=== PATIENT | male | born 1965 | race African-American/Black ===

== ENCOUNTER 2020-04-20 10:16 | Inpatient (IN) | payer OTHER ==
[2020-04-20 11:13] VITALS: BMI 41.9
[2020-04-20] MEDS ORDERED: ONDANSETRON *ODT* 4 MG TABLET SL PRN (12:19)
[2020-04-20] MEDS ORDERED: MAGNESIUM CITRATE 300 ML BOTTLE PO PRN (12:19)
[2020-04-20] MEDS ORDERED: MAGNESIUM HYDROX 2400MG/30ML ORAL SUSPENSION 30 ML CUP PO PRN (12:19)
[2020-04-20] MEDS ORDERED: MENTHOL/PHENOL 1 EACH UD MM PRN (12:19)
[2020-04-20] MEDS ORDERED: MAG HYDROX/AL HYDROX/SIMETH 30 ML UNIT-DOSE CUP PO PRN (12:19)
[2020-04-20] MEDS ORDERED: BISMUTH SUBSALICYLATE 524 MG/30 ML UD PO PRN (12:19)
[2020-04-20] MEDS ORDERED: ACETAMINOPHEN 325 MG TABLET (FP) PO PRN ×2 (12:19)
[2020-04-20] MEDS: IBUPROFEN 400 MG TABLET (FP) PO PRN (13:14)
[2020-04-20] MEDS: chlordiazePOXIDE HCL 25 MG CAPSULE PO PRN (13:14)
[2020-04-20] MEDS: METHOCARBAMOL 500 MG TABLET PO PRN (13:14)
[2020-04-20] MEDS: hydrOXYzine PAMOATE 25 MG CAPSULE (FP) PO SCH ×3 (13:17→22:46)
[2020-04-20] MEDS: chlordiazePOXIDE HCL 25 MG CAPSULE PO SCH ×2 (17:41→22:46)
[2020-04-20] MEDS: DOCUSATE SODIUM 100 MG CAPSULE (FP) PO PRN (17:45)
[2020-04-20] MEDS ORDERED: MASKS NR ONE (22:45)
[2020-04-20] MEDS: MELATONIN 5 MG TABLETS PO SCH (22:46)
[2020-04-20] MEDS: ARIPiprazole 10 MG TABLET PO SCH (22:46)
[2020-04-20] MEDS: THIAMINE HCL 100 MG TABLET (FP) PO SCH (22:46)
[2020-04-21] MEDS: hydrOXYzine PAMOATE 25 MG CAPSULE (FP) PO SCH ×5 (07:20→22:41)
[2020-04-21] MEDS: chlordiazePOXIDE HCL 25 MG CAPSULE PO SCH ×4 (07:20→22:39)
[2020-04-21 10:08] LABS: HEMATOCRIT 39.6 % (35.4-49); HEMOGLOBIN 12.7 GM/dL (11.7-16.9); MCH 27.6 pg (25.7-33.7); MEAN CELL VOLUME 86.3 fl (80-96); MEAN PLT VOLUME 9.5 fl (7.5-11.1); PLATELET COUNT 224 K/MM3 (134-434); RBC 4.58 M/mm3 (4.00-5.60); RDW 15.5 % (11.9-15.9); WHITE BLOOD COUNT 3.2 K/mm3 (4.0-10.0)
[2020-04-21 10:09] LABS: POTASSIUM 4.2 mmol/L (3.5-5.1)
[2020-04-21 10:11] LABS: BLOOD UREA NITROGEN 13.8 mg/dL (7-18); CALCIUM 8.6 mg/dL (8.5-10.1)
[2020-04-21 10:12] LABS: ALBUMIN 3.1 g/dl (3.4-5.0)
[2020-04-21 10:14] LABS: CREATININE 1.2 mg/dL (0.55-1.3)
[2020-04-21 10:16] LABS: BILIRUBIN,TOTAL 0.5 mg/dL (0.2-1); TOT PROT 6.6 g/dl (6.4-8.2)
[2020-04-21] MEDS: ASPIRIN 81 MG CHEWABLE TABLETS PO SCH (11:57)
[2020-04-21] MEDS: metoPROLOL SUCCINATE 25 MG TAB.SR.24H (FP) PO SCH (11:58)
[2020-04-21] MEDS: PRENATAL VITAMINS W/ FOLIC ACID TABLET (FP) PO SCH (11:58)
[2020-04-21] MEDS: NALTREXONE HCL 50 MG TABLET PO SCH (11:58)
[2020-04-21] MEDS: LISINOPRIL 5 MG TABLET PO SCH (11:58)
[2020-04-21] MEDS: DOCUSATE SODIUM 100 MG CAPSULE (FP) PO PRN ×2 (11:59→22:39)
[2020-04-21] MEDS: THIAMINE HCL 100 MG TABLET (FP) PO SCH (22:39)
[2020-04-21] MEDS: ARIPiprazole 10 MG TABLET PO SCH (22:40)
[2020-04-21] MEDS: MELATONIN 5 MG TABLETS PO SCH (22:41)
[2020-04-22] MEDS: chlordiazePOXIDE HCL 25 MG CAPSULE PO SCH ×3 (07:37→18:21)
[2020-04-22] MEDS: hydrOXYzine PAMOATE 25 MG CAPSULE (FP) PO SCH ×4 (07:38→18:21)
[2020-04-22] MEDS: ASPIRIN 81 MG CHEWABLE TABLETS PO SCH (12:19)
[2020-04-22] MEDS: LISINOPRIL 5 MG TABLET PO SCH (12:20)
[2020-04-22] MEDS: PRENATAL VITAMINS W/ FOLIC ACID TABLET (FP) PO SCH (12:20)
[2020-04-22] MEDS: metoPROLOL SUCCINATE 25 MG TAB.SR.24H (FP) PO SCH (12:21)
[2020-04-22] MEDS: NALTREXONE HCL 50 MG TABLET PO SCH (12:21)
[2020-04-22] MEDS: DOCUSATE SODIUM 100 MG CAPSULE (FP) PO PRN (12:24)
[2020-04-22] MEDS: chlordiazePOXIDE HCL 25 MG CAPSULE PO PRN (13:39)
[2020-04-23] MEDS ORDERED: chlordiazePOXIDE HCL 10 MG CAPSULE PO PRN
[2020-04-23] MEDS: ARIPiprazole 10 MG TABLET PO SCH ×2 (00:12→23:47)
[2020-04-23] MEDS: MELATONIN 5 MG TABLETS PO SCH ×2 (00:12→23:48)
[2020-04-23] MEDS: chlordiazePOXIDE HCL 25 MG CAPSULE PO SCH (00:13)
[2020-04-23] MEDS: THIAMINE HCL 100 MG TABLET (FP) PO SCH ×2 (00:13→23:48)
[2020-04-23] MEDS: hydrOXYzine PAMOATE 25 MG CAPSULE (FP) PO SCH ×3 (00:13→10:38)
[2020-04-23] MEDS: chlordiazePOXIDE HCL 10 MG CAPSULE PO SCH ×4 (07:41→23:48)
[2020-04-23] MEDS: PRENATAL VITAMINS W/ FOLIC ACID TABLET (FP) PO SCH (10:36)
[2020-04-23] MEDS: ASPIRIN 81 MG CHEWABLE TABLETS PO SCH (10:37)
[2020-04-23] MEDS: LISINOPRIL 5 MG TABLET PO SCH (10:38)
[2020-04-23] MEDS: metoPROLOL SUCCINATE 25 MG TAB.SR.24H (FP) PO SCH (10:38)
[2020-04-23] MEDS ORDERED: hydrOXYzine PAMOATE 25 MG CAPSULE (FP) PO PRN (12:52)
[2020-04-23] MEDS ORDERED: MASKS NR ONE (17:07)
[2020-04-23] MEDS: IBUPROFEN 400 MG TABLET (FP) PO PRN (17:09)
[2020-04-24] MEDS: IBUPROFEN 400 MG TABLET (FP) PO PRN ×3 (04:23→20:46)
[2020-04-24] MEDS: METHOCARBAMOL 500 MG TABLET PO PRN (04:23)
[2020-04-24] MEDS: chlordiazePOXIDE HCL 10 MG CAPSULE PO SCH ×2 (04:23→17:55)
[2020-04-24] MEDS: BENZOCAINE 20 % GEL TUBE MM PRN ×2 (04:24→20:45)
[2020-04-24] MEDS: metoPROLOL SUCCINATE 25 MG TAB.SR.24H (FP) PO SCH ×2 (11:51→11:56)
[2020-04-24] MEDS: LISINOPRIL 5 MG TABLET PO SCH ×2 (11:52→11:57)
[2020-04-24] MEDS: ASPIRIN 81 MG CHEWABLE TABLETS PO SCH (11:52)
[2020-04-24] MEDS: PRENATAL VITAMINS W/ FOLIC ACID TABLET (FP) PO SCH (11:52)
[2020-04-24] MEDS: DOCUSATE SODIUM 100 MG CAPSULE (FP) PO PRN (11:54)
[2020-04-24 18:35] LABS: EPI CELLS 27 /uL (0-25.1); HYALINE CASTS 8 /uL (0-3.1); PH,URINE 5.5 (5.0-8.0); URINE APPEARANCE CLEAR; URINE BACTERIA 11 /uL (0-1359); URINE BILIRUBIN NEGATIVE (NEGATIVE); URINE COLOR YELLOW; URINE GLUCOSE (UA) NEGATIVE (NEGATIVE); URINE KETONE TRACE (NEGATIVE); URINE LEUK ESTERASE TRACE (NEGATIVE); URINE NITRITE NEGATIVE (NEGATIVE); URINE PROTEIN TRACE (NEGATIVE); URINE RBC 5 /uL (0-23.9); URINE WBC 139 /uL (0-25.8)
[2020-04-24] MEDS: MELATONIN 5 MG TABLETS PO SCH (23:03)
[2020-04-24] MEDS: ARIPiprazole 10 MG TABLET PO SCH (23:04)
[2020-04-24] MEDS: THIAMINE HCL 100 MG TABLET (FP) PO SCH (23:46)
[2020-04-25] MEDS ORDERED: chlordiazePOXIDE HCL 10 MG CAPSULE PO ONE (05:00)
[2020-04-25] MEDS: BENZOCAINE 20 % GEL TUBE MM PRN (07:08)
[2020-04-25] MEDS: DOCUSATE SODIUM 100 MG CAPSULE (FP) PO PRN ×2 (07:10→13:39)
[2020-04-25] MEDS: IBUPROFEN 400 MG TABLET (FP) PO PRN (07:10)
[2020-04-25 13:23] VITALS: BP 136/73; PULSE 64; TEMP 97.3
[2020-04-25] MEDS: PRENATAL VITAMINS W/ FOLIC ACID TABLET (FP) PO SCH (13:38)
[2020-04-25] MEDS: LISINOPRIL 5 MG TABLET PO SCH (13:38)
[2020-04-25] MEDS: ASPIRIN 81 MG CHEWABLE TABLETS PO SCH (13:39)
[2020-04-25] MEDS: metoPROLOL SUCCINATE 25 MG TAB.SR.24H (FP) PO SCH (13:40)
== END 2020-04-25 13:30 | disposition other institution (70) | DRG 774 ==
LOC: YASAS 10:16 → Y6N 12:27
PROVIDERS: ADMIT Allergy & Immunology; ATTEND Allergy & Immunology
PROC: HZ2ZZZZ Detoxification Services for Substance Abuse Treatment (ICD-10-PCS; principal; 2020-04-20)
DX: F10.230 Alcohol dependence with withdrawal, uncomplicated (principal); F14.20 Cocaine dependence, uncomplicated; F12.20 Cannabis dependence, uncomplicated; F31.9 Bipolar disorder, unspecified; F39 Unspecified mood [affective] disorder; F41.9 Anxiety disorder, unspecified; F43.10 Post-traumatic stress disorder, unspecified; I10 Essential (primary) hypertension; I42.9 Cardiomyopathy, unspecified; J40 Bronchitis, not specified as acute or chronic; R91.1 Solitary pulmonary nodule; Z96.641 Presence of right artificial hip joint
CPT/HCPCS: 36415; 80053; 81003; 85027; 86780; 93005; 93010; C9803; U0003

== ENCOUNTER 2020-04-25 14:16 | Inpatient (IN) | payer OTHER ==
[2020-04-25] MEDS ORDERED: MAGNESIUM HYDROX 2400MG/30ML ORAL SUSPENSION 30 ML CUP PO PRN (14:35)
[2020-04-25] MEDS ORDERED: hydrOXYzine PAMOATE 25 MG CAPSULE (FP) PO PRN (14:35)
[2020-04-25] MEDS ORDERED: LOPERAMIDE HCL 2 MG CAPSULE PO PRN (14:35)
[2020-04-25] MEDS ORDERED: MENTHOL/PHENOL 1 EACH UD MM PRN (14:35)
[2020-04-25] MEDS ORDERED: NICOTINE POLACRILEX 2 MG GUM BUC PRN (14:35)
[2020-04-25] MEDS ORDERED: MAG HYDROX/AL HYDROX/SIMETH 30 ML UNIT-DOSE CUP PO PRN (14:35)
[2020-04-25] MEDS ORDERED: MAGNESIUM CITRATE 300 ML BOTTLE PO PRN (14:35)
[2020-04-25] MEDS ORDERED: guaiFENesin 200 MG/10 ML 10 ML UNIT-DOSE CUPS PO PRN (14:35)
[2020-04-25] MEDS ORDERED: ACETAMINOPHEN 325 MG TABLET (FP) PO PRN (14:35)
[2020-04-25] MEDS ORDERED: P-EPHED 60MG/TRIPROLIDI 2.5MG TABLET PO PRN (14:35)
[2020-04-25] MEDS: IBUPROFEN 400 MG TABLET (FP) PO PRN (16:44)
[2020-04-25] MEDS: BENZOCAINE 20 % GEL TUBE MM PRN (16:45)
[2020-04-25] MEDS: THIAMINE HCL 100 MG TABLET (FP) PO SCH (21:30)
[2020-04-25] MEDS: ARIPiprazole 10 MG TABLET PO SCH (21:30)
[2020-04-25] MEDS: MELATONIN 5 MG TABLETS PO SCH (21:30)
[2020-04-26] MEDS: IBUPROFEN 400 MG TABLET (FP) PO PRN ×3 (06:07→23:10)
[2020-04-26] MEDS: DOCUSATE SODIUM 100 MG CAPSULE (FP) PO PRN (06:08)
[2020-04-26] MEDS: BENZOCAINE 20 % GEL TUBE MM PRN ×2 (06:08→17:02)
[2020-04-26] MEDS: ASPIRIN 81 MG CHEWABLE TABLETS PO SCH (11:38)
[2020-04-26] MEDS: PRENATAL VITAMINS W/ FOLIC ACID TABLET (FP) PO SCH (11:38)
[2020-04-26] MEDS: LISINOPRIL 5 MG TABLET PO SCH (11:38)
[2020-04-26] MEDS: metoPROLOL SUCCINATE 25 MG TAB.SR.24H (FP) PO SCH (11:38)
[2020-04-26] MEDS: NALTREXONE HCL 50 MG TABLET PO SCH ×2 (11:38→11:41)
[2020-04-26] MEDS: NICOTINE 7 MG/24 HOURS TOPICAL PATCH TD SCH (11:39)
[2020-04-26] MEDS ORDERED: PNEUMOCOCCAL 23 VACCINE 0.5 ML VIAL IM ONE (12:00)
[2020-04-26] MEDS ORDERED: PNEUMOC 13-VAL CONJ-DIP CRM/PF 0.5 ML DISP.SYRIN IM ONE (15:15)
[2020-04-26] MEDS: ARIPiprazole 10 MG TABLET PO SCH (21:38)
[2020-04-26] MEDS: MELATONIN 5 MG TABLETS PO SCH (21:38)
[2020-04-26] MEDS: THIAMINE HCL 100 MG TABLET (FP) PO SCH (21:38)
[2020-04-27] MEDS: DOCUSATE SODIUM 100 MG CAPSULE (FP) PO PRN ×2 (06:53→22:28)
[2020-04-27] MEDS: BENZOCAINE 20 % GEL TUBE MM PRN (06:53)
[2020-04-27] MEDS: IBUPROFEN 400 MG TABLET (FP) PO PRN ×2 (06:53→22:28)
[2020-04-27] MEDS: ASPIRIN 81 MG CHEWABLE TABLETS PO SCH (10:43)
[2020-04-27] MEDS: LISINOPRIL 5 MG TABLET PO SCH (10:43)
[2020-04-27] MEDS: metoPROLOL SUCCINATE 25 MG TAB.SR.24H (FP) PO SCH (10:43)
[2020-04-27] MEDS: PRENATAL VITAMINS W/ FOLIC ACID TABLET (FP) PO SCH (10:43)
[2020-04-27] MEDS: NALTREXONE HCL 50 MG TABLET PO SCH (10:43)
[2020-04-27] MEDS: NICOTINE 7 MG/24 HOURS TOPICAL PATCH TD SCH (10:43)
[2020-04-27] MEDS: ARIPiprazole 10 MG TABLET PO SCH (22:25)
[2020-04-27] MEDS: THIAMINE HCL 100 MG TABLET (FP) PO SCH (22:26)
[2020-04-27] MEDS: MELATONIN 5 MG TABLETS PO SCH (22:30)
[2020-04-28] MEDS: PRENATAL VITAMINS W/ FOLIC ACID TABLET (FP) PO SCH (11:00)
[2020-04-28] MEDS: ASPIRIN 81 MG CHEWABLE TABLETS PO SCH (11:00)
[2020-04-28] MEDS: metoPROLOL SUCCINATE 25 MG TAB.SR.24H (FP) PO SCH (11:00)
[2020-04-28] MEDS: NICOTINE 7 MG/24 HOURS TOPICAL PATCH TD SCH (11:00)
[2020-04-28] MEDS: LISINOPRIL 5 MG TABLET PO SCH (11:00)
[2020-04-28] MEDS: NALTREXONE HCL 50 MG TABLET PO SCH (11:00)
[2020-04-28] MEDS: BENZOCAINE 20 % GEL TUBE MM PRN (11:01)
[2020-04-28] MEDS: DOCUSATE SODIUM 100 MG CAPSULE (FP) PO PRN (11:03)
[2020-04-28] MEDS: THIAMINE HCL 100 MG TABLET (FP) PO SCH (22:39)
[2020-04-28] MEDS: MELATONIN 5 MG TABLETS PO SCH (22:39)
[2020-04-28] MEDS: ARIPiprazole 10 MG TABLET PO SCH (22:39)
[2020-04-29] MEDS: ASPIRIN 81 MG CHEWABLE TABLETS PO SCH (10:28)
[2020-04-29] MEDS: PRENATAL VITAMINS W/ FOLIC ACID TABLET (FP) PO SCH (10:28)
[2020-04-29] MEDS: LISINOPRIL 5 MG TABLET PO SCH (10:28)
[2020-04-29] MEDS: NALTREXONE HCL 50 MG TABLET PO SCH ×2 (10:29→10:50)
[2020-04-29] MEDS: NICOTINE 7 MG/24 HOURS TOPICAL PATCH TD SCH (10:29)
[2020-04-29] MEDS: metoPROLOL SUCCINATE 25 MG TAB.SR.24H (FP) PO SCH (10:29)
[2020-04-29] MEDS: THIAMINE HCL 100 MG TABLET (FP) PO SCH (21:36)
[2020-04-29] MEDS: MELATONIN 5 MG TABLETS PO SCH (21:36)
[2020-04-29] MEDS: ARIPiprazole 10 MG TABLET PO SCH (21:37)
[2020-04-29] MEDS: DOCUSATE SODIUM 100 MG CAPSULE (FP) PO PRN (21:37)
[2020-04-30] MEDS ORDERED: PT OWN MED DRAWER 7, Y5N ONE (08:49)
[2020-04-30] MEDS: PRENATAL VITAMINS W/ FOLIC ACID TABLET (FP) PO SCH (10:47)
[2020-04-30] MEDS: LISINOPRIL 5 MG TABLET PO SCH (10:47)
[2020-04-30] MEDS: ASPIRIN 81 MG CHEWABLE TABLETS PO SCH (10:47)
[2020-04-30] MEDS: metoPROLOL SUCCINATE 25 MG TAB.SR.24H (FP) PO SCH (10:47)
[2020-04-30] MEDS: NALTREXONE HCL 50 MG TABLET PO SCH (10:48)
[2020-04-30] MEDS: NICOTINE 7 MG/24 HOURS TOPICAL PATCH TD SCH (10:48)
[2020-04-30] MEDS: DOCUSATE SODIUM 100 MG CAPSULE (FP) PO PRN (10:49)
[2020-04-30] MEDS: IBUPROFEN 400 MG TABLET (FP) PO PRN (10:51)
[2020-04-30] MEDS: BENZOCAINE 20 % GEL TUBE MM PRN (10:53)
[2020-04-30] MEDS: ARIPiprazole 10 MG TABLET PO SCH (21:39)
[2020-04-30] MEDS: THIAMINE HCL 100 MG TABLET (FP) PO SCH (21:39)
[2020-04-30] MEDS: MELATONIN 5 MG TABLETS PO SCH (21:40)
[2020-05-01] MEDS: ASPIRIN 81 MG CHEWABLE TABLETS PO SCH (10:07)
[2020-05-01] MEDS: DOCUSATE SODIUM 100 MG CAPSULE (FP) PO PRN (10:07)
[2020-05-01] MEDS: LISINOPRIL 5 MG TABLET PO SCH (10:07)
[2020-05-01] MEDS: NICOTINE 7 MG/24 HOURS TOPICAL PATCH TD SCH (10:07)
[2020-05-01] MEDS: PRENATAL VITAMINS W/ FOLIC ACID TABLET (FP) PO SCH (10:07)
[2020-05-01] MEDS: NALTREXONE HCL 50 MG TABLET PO SCH (10:08)
[2020-05-01] MEDS: metoPROLOL SUCCINATE 25 MG TAB.SR.24H (FP) PO SCH (10:08)
[2020-05-01] MEDS: IBUPROFEN 400 MG TABLET (FP) PO PRN ×2 (10:08→23:37)
[2020-05-01] MEDS: BENZOCAINE 20 % GEL TUBE MM PRN (10:09)
[2020-05-01] MEDS: THIAMINE HCL 100 MG TABLET (FP) PO SCH (22:46)
[2020-05-01] MEDS: ARIPiprazole 10 MG TABLET PO SCH (22:46)
[2020-05-01] MEDS: MELATONIN 5 MG TABLETS PO SCH (22:46)
[2020-05-02] MEDS ORDERED: PT OWN MED DRAWER 7, Y5N ONE (08:57)
[2020-05-02] MEDS: PRENATAL VITAMINS W/ FOLIC ACID TABLET (FP) PO SCH (10:07)
[2020-05-02] MEDS: metoPROLOL SUCCINATE 25 MG TAB.SR.24H (FP) PO SCH (10:07)
[2020-05-02] MEDS: NICOTINE 7 MG/24 HOURS TOPICAL PATCH TD SCH (10:07)
[2020-05-02] MEDS: LISINOPRIL 5 MG TABLET PO SCH (10:07)
[2020-05-02] MEDS: NALTREXONE HCL 50 MG TABLET PO SCH (10:07)
[2020-05-02] MEDS: ASPIRIN 81 MG CHEWABLE TABLETS PO SCH (10:07)
[2020-05-02] MEDS: DOCUSATE SODIUM 100 MG CAPSULE (FP) PO PRN (10:07)
[2020-05-02] MEDS: IBUPROFEN 400 MG TABLET (FP) PO PRN (10:08)
[2020-05-02] MEDS: THIAMINE HCL 100 MG TABLET (FP) PO SCH (22:33)
[2020-05-02] MEDS: MELATONIN 5 MG TABLETS PO SCH (22:33)
[2020-05-02] MEDS: ARIPiprazole 10 MG TABLET PO SCH (22:33)
[2020-05-03] MEDS: ASPIRIN 81 MG CHEWABLE TABLETS PO SCH (10:44)
[2020-05-03] MEDS: PRENATAL VITAMINS W/ FOLIC ACID TABLET (FP) PO SCH (10:44)
[2020-05-03] MEDS: LISINOPRIL 5 MG TABLET PO SCH (10:44)
[2020-05-03] MEDS: DOCUSATE SODIUM 100 MG CAPSULE (FP) PO PRN ×2 (10:44→19:06)
[2020-05-03] MEDS: metoPROLOL SUCCINATE 25 MG TAB.SR.24H (FP) PO SCH (10:44)
[2020-05-03] MEDS: NALTREXONE HCL 50 MG TABLET PO SCH (10:45)
[2020-05-03] MEDS: NICOTINE 7 MG/24 HOURS TOPICAL PATCH TD SCH (10:45)
[2020-05-03] MEDS: IBUPROFEN 400 MG TABLET (FP) PO PRN ×2 (10:46→19:05)
[2020-05-03] MEDS: THIAMINE HCL 100 MG TABLET (FP) PO SCH (22:09)
[2020-05-03] MEDS: MELATONIN 5 MG TABLETS PO SCH (22:09)
[2020-05-03] MEDS: ARIPiprazole 10 MG TABLET PO SCH (22:09)
[2020-05-04] MEDS: PRENATAL VITAMINS W/ FOLIC ACID TABLET (FP) PO SCH (10:21)
[2020-05-04] MEDS: ASPIRIN 81 MG CHEWABLE TABLETS PO SCH (10:21)
[2020-05-04] MEDS: DOCUSATE SODIUM 100 MG CAPSULE (FP) PO PRN (10:21)
[2020-05-04] MEDS: LISINOPRIL 5 MG TABLET PO SCH (10:21)
[2020-05-04] MEDS: NICOTINE 7 MG/24 HOURS TOPICAL PATCH TD SCH (10:22)
[2020-05-04] MEDS: NALTREXONE HCL 50 MG TABLET PO SCH (10:22)
[2020-05-04] MEDS: IBUPROFEN 400 MG TABLET (FP) PO PRN ×2 (10:22→22:09)
[2020-05-04] MEDS: metoPROLOL SUCCINATE 25 MG TAB.SR.24H (FP) PO SCH (10:22)
[2020-05-04] MEDS: THIAMINE HCL 100 MG TABLET (FP) PO SCH (22:10)
[2020-05-04] MEDS: MELATONIN 5 MG TABLETS PO SCH (22:11)
[2020-05-04] MEDS: ARIPiprazole 10 MG TABLET PO SCH (22:11)
[2020-05-05] MEDS ORDERED: PT OWN MED DRAWER 7, Y5N ONE (06:22)
[2020-05-05] MEDS: DOCUSATE SODIUM 100 MG CAPSULE (FP) PO PRN ×2 (06:22→21:19)
[2020-05-05] MEDS: BENZOCAINE 20 % GEL TUBE MM PRN ×2 (06:23→15:13)
[2020-05-05] MEDS: IBUPROFEN 400 MG TABLET (FP) PO PRN ×3 (06:24→21:19)
[2020-05-05] MEDS: metoPROLOL SUCCINATE 25 MG TAB.SR.24H (FP) PO SCH (10:35)
[2020-05-05] MEDS: NICOTINE 7 MG/24 HOURS TOPICAL PATCH TD SCH (10:35)
[2020-05-05] MEDS: PRENATAL VITAMINS W/ FOLIC ACID TABLET (FP) PO SCH (10:35)
[2020-05-05] MEDS: NALTREXONE HCL 50 MG TABLET PO SCH (10:35)
[2020-05-05] MEDS: ASPIRIN 81 MG CHEWABLE TABLETS PO SCH (10:35)
[2020-05-05] MEDS: LISINOPRIL 5 MG TABLET PO SCH (10:35)
[2020-05-05] MEDS: THIAMINE HCL 100 MG TABLET (FP) PO SCH (21:19)
[2020-05-05] MEDS: MELATONIN 5 MG TABLETS PO SCH (21:21)
[2020-05-05] MEDS: ARIPiprazole 10 MG TABLET PO SCH (21:21)
[2020-05-06] MEDS: DOCUSATE SODIUM 100 MG CAPSULE (FP) PO PRN ×2 (06:14→09:41)
[2020-05-06] MEDS: IBUPROFEN 400 MG TABLET (FP) PO PRN ×2 (06:14→18:02)
[2020-05-06] MEDS: BENZOCAINE 20 % GEL TUBE MM PRN (06:15)
[2020-05-06] MEDS ORDERED: PT OWN MED DRAWER 7, Y5N ONE (08:51)
[2020-05-06] MEDS: PRENATAL VITAMINS W/ FOLIC ACID TABLET (FP) PO SCH (09:39)
[2020-05-06] MEDS: LISINOPRIL 5 MG TABLET PO SCH (09:40)
[2020-05-06] MEDS: NALTREXONE HCL 50 MG TABLET PO SCH (09:40)
[2020-05-06] MEDS: ASPIRIN 81 MG CHEWABLE TABLETS PO SCH (09:41)
[2020-05-06] MEDS: NICOTINE 7 MG/24 HOURS TOPICAL PATCH TD SCH (09:41)
[2020-05-06] MEDS: metoPROLOL SUCCINATE 25 MG TAB.SR.24H (FP) PO SCH (09:41)
[2020-05-06] MEDS ORDERED: ACETAMINOPHEN 325 MG TABLET (FP) PO PRN (09:54)
[2020-05-06] MEDS: AMOXICILLIN 500 MG CAPSULE (FP) PO SCH ×2 (11:05→21:41)
[2020-05-06] MEDS: CHLORHEXIDINE GLUCONATE 118 ML MOUTHWASH MM SCH ×2 (12:07→21:42)
[2020-05-06] MEDS: AMMONIUM LACTATE 12% LOTION 225 GM BOTTLE TP PRN (12:07)
[2020-05-06] MEDS: COLLOIDAL OATMEAL 1 BAR EACH TP PRN (12:08)
[2020-05-06] MEDS: THIAMINE HCL 100 MG TABLET (FP) PO SCH (21:41)
[2020-05-06] MEDS: MELATONIN 5 MG TABLETS PO SCH (21:41)
[2020-05-06] MEDS: ARIPiprazole 10 MG TABLET PO SCH (21:42)
[2020-05-07] MEDS ORDERED: PT OWN MED DRAWER 7, Y5N ONE ×2 (08:43→19:02)
[2020-05-07] MEDS: PRENATAL VITAMINS W/ FOLIC ACID TABLET (FP) PO SCH (10:43)
[2020-05-07] MEDS: AMOXICILLIN 500 MG CAPSULE (FP) PO SCH ×2 (10:43→22:19)
[2020-05-07] MEDS: ASPIRIN 81 MG CHEWABLE TABLETS PO SCH (10:43)
[2020-05-07] MEDS: metoPROLOL SUCCINATE 25 MG TAB.SR.24H (FP) PO SCH (10:44)
[2020-05-07] MEDS: NALTREXONE HCL 50 MG TABLET PO SCH (10:44)
[2020-05-07] MEDS: NICOTINE 7 MG/24 HOURS TOPICAL PATCH TD SCH (10:44)
[2020-05-07] MEDS: LISINOPRIL 5 MG TABLET PO SCH (10:44)
[2020-05-07] MEDS: DOCUSATE SODIUM 100 MG CAPSULE (FP) PO PRN (10:46)
[2020-05-07] MEDS: BENZOCAINE 20 % GEL TUBE MM PRN (10:48)
[2020-05-07] MEDS: IBUPROFEN 400 MG TABLET (FP) PO PRN ×2 (10:56→18:03)
[2020-05-07] MEDS: CHLORHEXIDINE GLUCONATE 118 ML MOUTHWASH MM SCH ×2 (10:58→22:19)
[2020-05-07] MEDS: THIAMINE HCL 100 MG TABLET (FP) PO SCH (22:19)
[2020-05-07] MEDS: ARIPiprazole 10 MG TABLET PO SCH (22:19)
[2020-05-07] MEDS: MELATONIN 5 MG TABLETS PO SCH (22:19)
[2020-05-08] MEDS: IBUPROFEN 400 MG TABLET (FP) PO PRN ×3 (04:03→19:35)
[2020-05-08] MEDS: BENZOCAINE 20 % GEL TUBE MM PRN ×2 (04:03→10:46)
[2020-05-08] MEDS: DOCUSATE SODIUM 100 MG CAPSULE (FP) PO PRN (04:03)
[2020-05-08] MEDS ORDERED: PT OWN MED DRAWER 7, Y5N ONE ×2 (08:46→18:15)
[2020-05-08] MEDS: CHLORHEXIDINE GLUCONATE 118 ML MOUTHWASH MM SCH ×2 (10:40→21:38)
[2020-05-08] MEDS: ASPIRIN 81 MG CHEWABLE TABLETS PO SCH (10:41)
[2020-05-08] MEDS: LISINOPRIL 5 MG TABLET PO SCH (10:41)
[2020-05-08] MEDS: AMOXICILLIN 500 MG CAPSULE (FP) PO SCH ×2 (10:41→21:38)
[2020-05-08] MEDS: PRENATAL VITAMINS W/ FOLIC ACID TABLET (FP) PO SCH (10:41)
[2020-05-08] MEDS: metoPROLOL SUCCINATE 25 MG TAB.SR.24H (FP) PO SCH (10:42)
[2020-05-08] MEDS: NICOTINE 7 MG/24 HOURS TOPICAL PATCH TD SCH (10:42)
[2020-05-08] MEDS: NALTREXONE HCL 50 MG TABLET PO SCH (10:42)
[2020-05-08] MEDS: THIAMINE HCL 100 MG TABLET (FP) PO SCH (21:38)
[2020-05-08] MEDS: ARIPiprazole 10 MG TABLET PO SCH (21:38)
[2020-05-08] MEDS: MELATONIN 5 MG TABLETS PO SCH (21:38)
[2020-05-09] MEDS: DOCUSATE SODIUM 100 MG CAPSULE (FP) PO PRN ×3 (06:49→22:01)
[2020-05-09] MEDS: IBUPROFEN 400 MG TABLET (FP) PO PRN ×2 (06:49→22:01)
[2020-05-09] MEDS ORDERED: PT OWN MED DRAWER 7, Y5N ONE ×2 (08:44→11:07)
[2020-05-09] MEDS: metoPROLOL SUCCINATE 25 MG TAB.SR.24H (FP) PO SCH (11:02)
[2020-05-09] MEDS: AMOXICILLIN 500 MG CAPSULE (FP) PO SCH ×2 (11:03→21:59)
[2020-05-09] MEDS: ASPIRIN 81 MG CHEWABLE TABLETS PO SCH (11:03)
[2020-05-09] MEDS: PRENATAL VITAMINS W/ FOLIC ACID TABLET (FP) PO SCH (11:03)
[2020-05-09] MEDS: NALTREXONE HCL 50 MG TABLET PO SCH (11:03)
[2020-05-09] MEDS: LISINOPRIL 5 MG TABLET PO SCH (11:04)
[2020-05-09] MEDS: NICOTINE 7 MG/24 HOURS TOPICAL PATCH TD SCH (11:08)
[2020-05-09] MEDS: CHLORHEXIDINE GLUCONATE 118 ML MOUTHWASH MM SCH ×2 (11:08→22:02)
[2020-05-09] MEDS: ARIPiprazole 10 MG TABLET PO SCH (21:59)
[2020-05-09] MEDS: THIAMINE HCL 100 MG TABLET (FP) PO SCH (21:59)
[2020-05-09] MEDS: MELATONIN 5 MG TABLETS PO SCH (22:03)
[2020-05-10] MEDS ORDERED: PT OWN MED DRAWER 7, Y5N ONE ×2 (08:35→21:39)
[2020-05-10] MEDS: PRENATAL VITAMINS W/ FOLIC ACID TABLET (FP) PO SCH (10:06)
[2020-05-10] MEDS: metoPROLOL SUCCINATE 25 MG TAB.SR.24H (FP) PO SCH (10:06)
[2020-05-10] MEDS: LISINOPRIL 5 MG TABLET PO SCH (10:07)
[2020-05-10] MEDS: ASPIRIN 81 MG CHEWABLE TABLETS PO SCH (10:07)
[2020-05-10] MEDS: AMOXICILLIN 500 MG CAPSULE (FP) PO SCH ×2 (10:07→21:40)
[2020-05-10] MEDS: NALTREXONE HCL 50 MG TABLET PO SCH (10:08)
[2020-05-10] MEDS: NICOTINE 7 MG/24 HOURS TOPICAL PATCH TD SCH (10:08)
[2020-05-10] MEDS: MINERAL OIL/PETROLAT/WATER TOPICAL CREAM 454 GM JAR TP PRN (10:09)
[2020-05-10] MEDS: CHLORHEXIDINE GLUCONATE 118 ML MOUTHWASH MM SCH ×2 (11:17→21:40)
[2020-05-10] MEDS: ARIPiprazole 10 MG TABLET PO SCH (21:39)
[2020-05-10] MEDS: THIAMINE HCL 100 MG TABLET (FP) PO SCH (21:39)
[2020-05-10] MEDS: DOCUSATE SODIUM 100 MG CAPSULE (FP) PO PRN (21:40)
[2020-05-10] MEDS: IBUPROFEN 400 MG TABLET (FP) PO PRN (21:40)
[2020-05-10] MEDS: MELATONIN 5 MG TABLETS PO SCH (21:41)
[2020-05-11] MEDS ORDERED: PT OWN MED DRAWER 7, Y5N ONE ×4 (06:54→18:32)
[2020-05-11] MEDS: CHLORHEXIDINE GLUCONATE 118 ML MOUTHWASH MM SCH ×2 (10:24→21:42)
[2020-05-11] MEDS: AMOXICILLIN 500 MG CAPSULE (FP) PO SCH ×2 (10:24→21:42)
[2020-05-11] MEDS: ASPIRIN 81 MG CHEWABLE TABLETS PO SCH (10:24)
[2020-05-11] MEDS: NICOTINE 7 MG/24 HOURS TOPICAL PATCH TD SCH (10:25)
[2020-05-11] MEDS: PRENATAL VITAMINS W/ FOLIC ACID TABLET (FP) PO SCH (10:25)
[2020-05-11] MEDS: LISINOPRIL 5 MG TABLET PO SCH (10:25)
[2020-05-11] MEDS: NALTREXONE HCL 50 MG TABLET PO SCH (10:26)
[2020-05-11] MEDS: metoPROLOL SUCCINATE 25 MG TAB.SR.24H (FP) PO SCH (10:26)
[2020-05-11] MEDS: AMMONIUM LACTATE 12% LOTION 225 GM BOTTLE TP PRN (10:27)
[2020-05-11] MEDS: IBUPROFEN 400 MG TABLET (FP) PO PRN ×2 (10:28→21:43)
[2020-05-11] MEDS: BENZOCAINE 20 % GEL TUBE MM PRN (10:29)
[2020-05-11] MEDS: COLLOIDAL OATMEAL 1 BAR EACH TP PRN (10:30)
[2020-05-11] MEDS: ARIPiprazole 10 MG TABLET PO SCH (21:42)
[2020-05-11] MEDS: MELATONIN 5 MG TABLETS PO SCH (21:42)
[2020-05-11] MEDS: THIAMINE HCL 100 MG TABLET (FP) PO SCH (21:42)
[2020-05-11] MEDS: DOCUSATE SODIUM 100 MG CAPSULE (FP) PO PRN (21:43)
[2020-05-12] MEDS ORDERED: PT OWN MED DRAWER 7, Y5N ONE ×2 (09:00→22:02)
[2020-05-12] MEDS: AMOXICILLIN 500 MG CAPSULE (FP) PO SCH ×2 (10:35→21:58)
[2020-05-12] MEDS: PRENATAL VITAMINS W/ FOLIC ACID TABLET (FP) PO SCH (11:07)
[2020-05-12] MEDS: ASPIRIN 81 MG CHEWABLE TABLETS PO SCH (11:07)
[2020-05-12] MEDS: LISINOPRIL 5 MG TABLET PO SCH (11:07)
[2020-05-12] MEDS: metoPROLOL SUCCINATE 25 MG TAB.SR.24H (FP) PO SCH (11:07)
[2020-05-12] MEDS: NALTREXONE HCL 50 MG TABLET PO SCH (11:08)
[2020-05-12] MEDS: IBUPROFEN 400 MG TABLET (FP) PO PRN (11:09)
[2020-05-12] MEDS: DOCUSATE SODIUM 100 MG CAPSULE (FP) PO PRN ×2 (11:09→22:00)
[2020-05-12] MEDS: NICOTINE 7 MG/24 HOURS TOPICAL PATCH TD SCH (11:12)
[2020-05-12] MEDS: CHLORHEXIDINE GLUCONATE 118 ML MOUTHWASH MM SCH ×2 (11:13→22:03)
[2020-05-12] MEDS: ARIPiprazole 10 MG TABLET PO SCH (21:58)
[2020-05-12] MEDS: THIAMINE HCL 100 MG TABLET (FP) PO SCH (21:58)
[2020-05-12] MEDS: MELATONIN 5 MG TABLETS PO SCH (22:03)
[2020-05-13 06:35] VITALS: BP 147/71; PULSE 83; TEMP 97.7
[2020-05-13] MEDS: AMMONIUM LACTATE 12% LOTION 225 GM BOTTLE TP PRN (06:38)
[2020-05-13] MEDS: MINERAL OIL/PETROLAT/WATER TOPICAL CREAM 454 GM JAR TP PRN (06:39)
[2020-05-13] MEDS: IBUPROFEN 400 MG TABLET (FP) PO PRN (08:38)
[2020-05-13] MEDS: NALTREXONE HCL 50 MG TABLET PO SCH (09:02)
[2020-05-13] MEDS: ASPIRIN 81 MG CHEWABLE TABLETS PO SCH (09:02)
[2020-05-13] MEDS: metoPROLOL SUCCINATE 25 MG TAB.SR.24H (FP) PO SCH (09:02)
[2020-05-13] MEDS: LISINOPRIL 5 MG TABLET PO SCH (09:04)
[2020-05-13] MEDS: CHLORHEXIDINE GLUCONATE 118 ML MOUTHWASH MM SCH (09:04)
[2020-05-13] MEDS: NICOTINE 7 MG/24 HOURS TOPICAL PATCH TD SCH (09:04)
[2020-05-13] MEDS: PRENATAL VITAMINS W/ FOLIC ACID TABLET (FP) PO SCH (09:04)
== END 2020-05-13 09:00 | disposition home or self-care (01) | DRG 772 ==
LOC: YASAS 14:16 → Y3W 14:17
PROVIDERS: ADMIT Allergy & Immunology; ATTEND Allergy & Immunology
PROC: HZ42ZZZ Group Counseling for Substance Abuse Treatment, Cognitive-Behavioral (ICD-10-PCS; principal; 2020-04-25)
DX: F10.20 Alcohol dependence, uncomplicated (principal); F14.20 Cocaine dependence, uncomplicated; F12.20 Cannabis dependence, uncomplicated; K08.89 Other specified disorders of teeth and supporting structures; L85.3 Xerosis cutis; Z56.0 Unemployment, unspecified
CPT/HCPCS: 90732; C9803; G0009; U0003